=== PATIENT | male | born 1965 | race Caucasian/White ===

== ENCOUNTER 2024-09-19 12:34 | Emergency (ER) | payer BC ==
[2024-09-19 13:04] LABS: BASOPHILS ABSOLUTE AUTO 0.03 10^3/uL (0.00-0.50); BASOPHILS PERCENT AUTO 0.6 % (0-1); EOSINOPHILS ABSOLUTE AUTO 0.14 10^3/uL (0.00-1.50); EOSINOPHILS PERCENT AUTO 2.6 % (0-6); HEMATOCRIT 42.4 % (42.0-52.0); HEMOGLOBIN 13.9 g/dL (14.0-18.0); LYMPHOCYTES ABSOLUTE AUTO 2.26 10^3/uL (0.60-5.00); LYMPHOCYTES PERCENT AUTO 42.2 % (24-44); MEAN CORPUSCULAR HGB CONC 32.8 g/dL (32.0-36.0); MEAN CORPUSCULAR VOLUME 91.6 fL (83.0-97.0); MONOCYTES ABSOLUTE AUTO 0.31 10^3/uL (0.00-1.50); MONOCYTES PERCENT AUTO 5.8 % (0-10); NEUTROPHILS ABSOLUTE AUTO 2.61 x10^3/uL (1.80-8.00); NEUTROPHILS PERCENT AUTO 48.8 % (41-71); PLATELET COUNT,PLT 223 10^3/uL (150-400); RED BLOOD CELL COUNT 4.63 x10^6/uL (4.50-6.00); WHITE BLOOD CELL COUNT,WBC 5.4 10^3/uL (4.0-11.0)
[2024-09-19 13:06] LABS: APPEARANCE,URINE CLEAR (CLEAR); BILIRUBIN,URINE NEGATIVE (NEGATIVE); COLOR,URINE DARK YELLOW (YELLOW); GLUCOSE,URINE NEGATIVE (NEGATIVE); KETONES,URINE NEGATIVE (NEGATIVE); LEUKOCYTE ESTERASE,URINE NEGATIVE (NEGATIVE); NITRITE,URINE NEGATIVE (NEGATIVE); OCCULT BLOOD,URINE LARGE (NEGATIVE); PH,URINE 5.5 (4.5-8.0); PROTEIN,URINE 30 mg/dL (NEGATIVE); UROBILINOGEN,URINE 0.2 EU/dL (0.2-1.0)
[2024-09-19 13:15] LABS: BACTERIA,URINE OCCASIONAL /HPF (NOT SEEN); EPITHELIAL CELLS,URINE NOT SEEN /HPF (NOT SEEN); MUCUS,URINE OCCASIONAL /HPF (NOT SEEN); RBC,URINE 20-30 /HPF (0-5); WBC,URINE NOT SEEN /HPF (0-5)
[2024-09-19 13:17] LABS: ALANINE AMINOTRANSFERASE,ALT 39 U/L (12-78); ALKALINE PHOSPHATASE 81 U/L (46-116); ASPARTATE AMNIOTRANSFERASE,AST 25 U/L (15-37); BILIRUBIN TOTAL 0.6 mg/dL (0.0-1.0); BLOOD UREA NITROGEN,BUN 18 mg/dL (7-18); CALCIUM 8.8 mg/dL (8.4-10.1); CARBON DIOXIDE,CO2 29 mmol/L (21-32); CHLORIDE,CL 102 mEq/L (98-106); CREATININE 1.1 mg/dL (0.7-1.3); ESTIMATED GFR 77 mL/min (>=60); GLUCOSE RANDOM 107 mg/dL (75-99); MAGNESIUM 1.8 mg/dL (1.8-2.4); POTASSIUM,K 3.8 mEq/L (3.5-5.0); PROTEIN TOTAL,TP 7.5 g/dL (6.4-8.2); SODIUM,NA 141 mEq/L (136-145)
[2024-09-19] MEDS: Sodium Chloride 0.9% 1,000 ML IV ONE (13:40)
[2024-09-19] MEDS: Ketorolac 30 MG/ML SDV IVPUSH ONE (13:40)
[2024-09-19] MEDS: Take Home: Acetaminophen/HYDROcodone 325-5 MG, 2 Tab Pack PO ONE (15:02)
[2024-09-19] MEDS: Tamsulosin 0.4 MG Cap.ER PO ONE (15:02)
== END 2024-09-19 15:20 | disposition home or self-care (01) ==
LOC: CC.ED 12:34
DX: N13.2 Hydronephrosis with renal and ureteral calculous obstruction (principal)
CPT/HCPCS: 36415; 74176; 80053; 81001; 83735; 85025; 96374; 99284; 99284-25; A9270-GY; J1885; J7030